=== PATIENT | female | born 1985 | race Hispanic/Latino ===

== ENCOUNTER 2018-11-30 05:43 | Inpatient (IN) ==
[2018-11-30] MEDS ORDERED: NS 1,000 ML IV ONE (06:03)
[2018-11-30] MEDS ORDERED: TORADOL IV ONE (06:03)
--- NOTE | 2018-11-30 06:10 | PROVIDER DOCUMENTATION ---
HPI-Abdominal Pain/GI Problem - General Chief Complaint: Flank Pain Stated Complaint: KIDNEY Time Seen by Provider: 11/30/18 05:48 Source: patient Allergies/Adverse Reactions: Patient Allergies Allergy/AdvReac Type Severity Reaction Status Date / Time No Known Allergies Allergy Verified 11/30/18 06:09 Home Medications: Home Medication List Medication Instructions Recorded Confirmed Last Taken Type Metformin [Glucophage] 1,000 mg PO DAILY 10/11/18 11/30/18 Unknown History - History of Present Illness-ABD Nature of Presenting Problems: 33 y/o HF c/o lt sided flank pain with fever for the past day adding that she has hx of kidney stones and uti's. Pt relates that her fever has been as high as 104 at home. Abdominal Pain Onset Location: reports: flank (LT flank) Pain Radiation: reports: LLQ Quality of Pain: reports: aching, sharp Severity in ED: reports: moderate Onset/Duration: reports: 24 hours ago Timing: reports: still present Activities at Onset: reports: light activity Exposure to sick contacts?: No Modifying Factors: improves with: movement, palpation Associated Symptoms: reports: denies symptoms Last BM: 24 hours ago Dark Stools Present?: reports: none noticed Rectal Bleeding: reports: none # of Diarrhea Episodes: 0 Rectal Pain: reports: none # of Vomiting Episodes: 0 Emesis Description: reports: none Bruising or Bleeding Gums?: No Similar Symptoms Previously?: No Recently seen or treated by another doctor?: No Review of Systems - Adult - REVIEW OF SYSTEMS - ADULT Constitutional: reports: no symptoms reported, see HPI Eyes: reports: no symptoms reported, see HPI Ears, Nose, Mouth & Throat: reports: no symptoms reported, see HPI Cardiovascular: reports: no symptoms reported, see HPI Respiratory: reports: no symptoms reported Gastrointestinal: reports: see HPI, abdominal pain Genitourinary: reports: see HPI, flank pain (lt sided) Musculoskeletal: reports: no symptoms reported, see HPI Integumentary: reports: no symptoms reported, see HPI Neurological: reports: no symptoms reported, see HPI Psychiatric: reports: no symptoms reported, see HPI Endocrine: reports: no symptoms reported, see HPI Hematologic/Lymphatic: reports: no symptoms reported, see HPI Allergic/Immunologic: reports: no symptoms reported, see HPI All Other Systems: Reviewed and Negative Past History - Adult - PAST MEDICAL HISTORY-ADULT Review of Records: reports: Nursing Assessment Review, Medications Reviewed, Social history reviewed & non-contributory. Major Childhood Illnesses: reports: denies history Cardiovascular: reports: denies history Respiratory: reports: denies history Gastrointestinal: reports: cancer (masses removed from stomach) Obstetrical/Gynecological: reports: denies history Genitourinary: reports: kidney stones (hx), chronic UTI's Musculoskeletal: reports: denies history Neurological: reports: denies history Endocrine/Immune: reports: denies history Other Conditions: reports: denies history - PRIOR SURGERIES/PROCEDURES Surgical/Procedure History: reports: appendectomy, cholecystectomy (lithotripsy ), other (masses removed from stomach) - IMMUNIZATION STATUS Childhood Immunizations: See Nurse Assessment Flu Vaccine: See Nurse Assessment - FAMILY HISTORY Family History: reviewed, not pertinent Physical Exam-General - PHYSICAL EXAM-ADULT Initial Vital Signs Reviewed: Yes - CONSTITUTIONAL General Appearance: appears well, alert, mild distress - EYES Eyes: PERRL/EOMI - HEAD, EARS, NOSE, MOUTH & THROAT HENMT: normocephalic/atraumatic, moist mucous membranes - NECK Neck: non-tender, full range of motion, supple, normal inspection - RESPIRATORY Respiratory: chest non-tender, lungs clear, normal breath sounds, no pleuratic chest pain, no respiratory distress, no accessory muscle use - CARDIOVASCULAR Cardiovascular: normal peripheral pulses, regular rate, rhythm, no edema, no gallop, no JVD - GASTROINTESTINAL (ABDOMEN) Abdominal Exam: normal bowel sounds, soft, no organomegaly, no pulsatile mass, tenderness (lt flank tenderness with palpation) - LYMPHATIC Lymphatic: no adenopathy - MUSCULOSKELETAL Back Exam: normal inspection, no vertebral tenderness, CVA tenderness (Lt sided) Extremity: normal range of motion, non-tender, normal gait, normal inspection, no pedal edema, no calf tenderness, normal capillary refill - SKIN Integumentary: normal color, normal turgor - NEUROLOGIC 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, grossly normal, no motor/sensory deficits - PSYCHIATRIC Psych/Mental Status: normal mood/affect, normal thought content, normal thought process, oriented x 3 Progress - PLAN OF CARE/RESULTS Progress/Plan/Lab Results: Vital Signs - 8 hr 11/30/18 05:47 Temperature 101.7 F H Pulse Rate 142 H Respiratory Rate 18 Blood Pressure 114/84 O2 Sat by Pulse Oximetry 96 Orders Category Date Time Status ED: Urine Bedside ORDERED Care 11/30/18 06:[address] ABDOMEN/PELVIS W/O CONTRAST [CT] Stat Exams 11/30/18 05:59 Ordered CBC WITH ELECTRONIC DIFF [HEME] Stat Lab 11/30/18 06:04 Uncollected CMP [COMPREHENSIVE METABOLIC PANEL] [CHEM] Stat Lab 11/30/18 06:04 Uncollected URINALYSIS W/POSS RFLX CULT [URINALYSIS] Stat Lab 11/30/18 05:59 Uncollected Ketorolac [Toradol] Med 11/30/18 06:03 Once 15 mg IV NOW ONE Ns 1000 ml IV Bolus X1 Med 11/30/18 06:03 Ordered 0.9% Sodium Chloride Inj [Ns] 1,000 ml IV 999 mls/hr Result Diagrams: 11/30/18 08:51 11/30/18 06:31 - REASSESSMENT Reassessment #1 Time Reassessed: 09:14 (assumed care @ shift change, pt seen, examined. Has had fever for 2 days, nausea. On exam, L CVA is tender. Discussed options with pt, feels she needs to stay) - CONSULTS/PCP/HOSPITALIST Notification #1 *Consult/PCP/Hospitalist*: Rosita for [facility] Time Discussed: 09:15 Consult Disposition: Will see in ED, Admit Departure - Departure Date of Disposition Decision: 11/30/18 Time of Disposition Decision: 09:16 DIAGNOSIS: Pyelonephritis Disposition: ADMITTED INPATIENT 09 Certified Medical Emergency: Emergent Condition: Stable Referrals and Follow-Ups: Ruth Lofton CRNP [Primary Care Provider] - - Critical Care Note This patient required my direct & personal management of CC.: No Attestation - Physician/ EDNA Attestation The physician spent face to face time with patient:: Yes Advanced Practice Provider documentation review:: Supervising physician onsite and consulted in the evaluation and care of this patient. The physician did have a face to face encounter with the patient.
[2018-11-30] MEDS ORDERED: TYLENOL PO ONE (06:12)
[2018-11-30 06:52] LABS: IMM GRAN# 0.03 X1000 (0.0-0.04); IMM GRAN% 0.2 % (0.0-0.5)
[2018-11-30 06:57] LABS: URINE SOURCE CLEAN CATCH
[2018-11-30 07:00] LABS: BILIRUBIN URINE NEGATIVE (NEGATIVE); BLOOD URINE MODERATE (NEGATIVE); COLOR YELLOW; GLUCOSE URINE NEGATIVE (NEGATIVE); KETONE URINE NEGATIVE (NEGATIVE); LEUKOCYTES URINE SMALL (NEGATIVE); NITRITE URINE NEGATIVE (NEGATIVE); PH URINE 6.5; PROTEIN URINE TRACE mg/dL (NEGATIVE); TURBIDITY URINE CLEAR (CLEAR); UROBILINOGEN URINE NORMAL (NORMAL)
[2018-11-30 07:01] LABS: UR EPITHELIAL CELLS <10 /HPF (<10); URINE BACTERIA 1+ /HPF; URINE RBC TNTC /HPF (<10)
[2018-11-30] MEDS ORDERED: ROCEPHIN 1 GM in NS 50 ML IV ONE (07:16)
[2018-11-30 07:22] LABS: AGAP 16; ALB/GLOB RATIO 1.1; ALBUMIN 4.4 g/dL (3.5-5.0); ALKALINE PHOSPHATASE 63 U/L (32-104); BUN 13 mg/dL (8-22); CALCIUM 9.9 mg/dL (8.8-10.2); CHLORIDE 98 mmol/L (98-107); COSMO 274; CREATININE 0.8 mg/dL (0.5-0.9); ESTIMATED GFR > 60; GLUCOSE 127 mg/dL (70-104); GOT 26 U/L (10-30); GPT 25 U/L (10-36); POTASSIUM 4.1 mmol/L (3.5-5.1); SODIUM 136 mmol/L (136-145); TCO2 22 mmol/L (25-35); TOTAL BILIRUBIN 0.58 mg/dL (0.20-1.00); TOTAL PROTEIN 8.3 g/dL (6.3-8.3)
--- NOTE | 2018-11-30 08:25 | Diag Imaging Result Doc PS360 ---
EXAM: CT ABDOMEN/PELVIS W/O CONTRAST 11/30/2018 HISTORY: lt flank pain TECHNIQUE: This exam was performed using automated exposure control, adjustment of mA or kV according to patient size, and/or use of iterative reconstruction technique. COMMENT: The current study is compared with 05/26/2018. There are minimal atelectatic appearing opacities in the lung bases which are slightly worse than on the previous study. The liver is hypodense. There are granulomata in the spleen. There has been cholecystectomy. There is some perinephric stranding and stranding in the anterior pararenal space on the left. This appearance was not present on the previous study. There is mild dilatation of the collecting system and ureter on the left. There is no evidence of ureterolithiasis. The possibility of a recently passed stone cannot be excluded. There has been previous appendectomy. There is no significant free fluid. The urinary bladder is unremarkable. There is no evidence of acute bony abnormality. IMPRESSION: Mild obstructive changes on the left without evidence of calculus. Electronically signed by Ky Barrios 11/30/2018 8:23 AM
--- NOTE | 2018-11-30 08:26 | Diag Imaging Result Doc PS360 ---
EXAM: CHEST-1 VIEW 11/30/2018 HISTORY: INITIATING SEPSIS PROTOCOL TECHNIQUE: AP portable at 0812 COMMENT: There is no evidence of acute cardiac or pulmonary disease. Compared to 07/14/2018 there has been no significant change. IMPRESSION: No evidence of acute disease. Electronically signed by Ky Barrios 11/30/2018 8:24 AM
[2018-11-30 08:34] LABS: INR 1.04; PROTIME 13.7 Seconds (11.0-16.0)
[2018-11-30 08:35] LABS: PTT 31.1 Seconds (22.3-41.8)
[2018-11-30 08:57] LABS: BASO# 0.01 X1000 (0.0-0.2); BASO% 0.1 % (0.0-0.8); HEMATOCRIT 38.7 % (37.0-47.0); LYMPH# 1.97 X1000 (1.2-3.4); LYMPH% 14.6 % (20.5-51.1); MCH 29.5 PG (27-31); MCHC 33.6 g/dL (33-37); MCV 87.8 FL (81-99); MONO# 1.02 X1000 (0.11-0.59); MONO% 7.6 % (1.7-9.3); MPV 10.9 FL (7.4-10.4); NEUT# 10.43 X1000 (1.4-6.5); NEUT% 77.5 % (42.2-75.2); PLT 210 X1000 (130-400); RBC 4.41 XMIL (4.2-5.4); WBC 13.46 X1000 (4.8-10.8)
--- NOTE | 2018-11-30 10:38 | HISTORY AND PHYSICAL ---
PRIMARY CARE PHYSICIAN: IGOR Guerra. CHIEF COMPLAINT: Left flank pain and fever for the past 2 days that progressively worsened. HISTORY OF PRESENTING ILLNESS: This is a 33-year-old female who presents to [facility] with complaints of left flank pain and fever for the past 2 days that had progressively worsened. States she has had a history of frequent UTIs and kidney stones requiring lithotripsy in the past. Her workup showed a temperature of 101.7 degrees on arrival with a pulse of 142. Her white blood cell count was 13.46. Urinalysis showed moderate blood, small leukocytes, 1+ bacteria. Abdomen and pelvic CT showed mild obstructive changes on the left without evidence of calculi. She has left CVA tenderness, so she will be admitted for further evaluation and treatment. PAST MEDICAL HISTORY: Frequent UTIs, kidney stones, and PCOS. PAST SURGICAL HISTORY: An appendectomy cholecystectomy, a mass removed from her stomach and lithotripsy. FAMILY HISTORY: Reviewed and noncontributory. SOCIAL HISTORY: She currently lives with family. Denies any tobacco use currently, but is a former smoker and denies any alcohol or illicit drug use. ALLERGIES: She has no known drug allergies. HOME MEDICATIONS: She takes Glucophage 1000 mg p.o. daily; it will be held. LABORATORY DATA: Showed a white blood cell count of 13.46, hemoglobin 13, hematocrit 38.7, platelets 210. PT and INR of 13.7 and 1.04. Sodium 136, potassium 4.1, chloride 98, CO2 22. BUN of 13, creatinine 0.8, glucose 127. Plasma lactate of 1.6. Cardiac enzymes were negative. Urinalysis with moderate blood, negative nitrites, small leukocytes, and 1+ bacteria. IMAGING STUDIES: Abdomen and pelvic CT showed mild obstructive changes on the left without evidence of calculus. Chest x-ray showed no evidence of acute disease. REVIEW OF SYSTEMS: She was positive for fever. Denied any chills, blurred vision, dizziness, chest pain, coughing, shortness of breath. Had some mild suprapubic and left lower quadrant abdominal pain with the left flank pain. No nausea, vomiting, diarrhea. No burning or hurting with urination. The patient states that she did just finish her menstrual cycle recently, but has not noted any marci blood in her urine. PHYSICAL EXAMINATION: VITAL SIGNS: On arrival she had a temperature of 101.7 degrees, pulse 142, respirations 18, blood pressure of 114/84, satting 96% on room air. Heart rate has come down to 112. GENERAL: This is a 33-year-old female sitting up in the bed and answers questions appropriately. HENT: Normocephalic, atraumatic. Normal ENT inspection. Oropharynx and nares are clear. EYES: Pupils are equal, round, and reactive to light and accommodation. Extraocular movements are intact. NECK: Normal inspection, normal range of motion. LUNGS: Clear to auscultation bilaterally with equal lung expansion and chest wall movement. HEART: With tachycardia, but no murmurs, rubs, or gallops. ABDOMEN: Soft. There was some mild tenderness to the suprapubic area to palpation. She also had left CVA tenderness. Bowel sounds are present x4 quadrants. MUSCULOSKELETAL: She had 5/5 strength x4 extremities. NEUROLOGICAL: The cranial nerves 2-12 appear grossly intact. ASSESSMENT: 1. Sepsis. 2. Pyelonephritis. 3. Fever. 4. Leukocytosis. PLAN: She will be admitted to the medical unit. Placed on a regular diet. Rocephin 1 gram IV q. 24 hours, normal saline at 125 mL an hour, Demerol 25 mg IV q. 4 hours p.r.n., Zofran 4 mg IV q. 4 hours p.r.n., Tylenol 650 mg p.o. q. 6 hours p.r.n. We will do serial lactate. We will do urine culture and recheck a CBC and BMP in the a.m. Further orders after seen by attending. Dictated by IGOR Rice for Adithya Dee MD cc: IGOR Guerra CRNP Omar J. Sosa-Chirinos, MD
[2018-11-30] MEDS: NS 1,000 ML IV SCH ×2 (11:15→21:02)
[2018-11-30] MEDS: DEMEROL IV PRN ×2 (11:29→16:35)
[2018-11-30] MEDS: ZOFRAN IV PRN ×2 (11:30→15:25)
[2018-11-30] MEDS: TYLENOL PO PRN ×2 (15:22→20:56)
--- NOTE | 2018-11-30 16:15 | HISTORY AND PHYSICAL ---
ADDENDUM REPORT The patient was seen and examined by me [id number]. All the laboratory, vital signs, and images were reviewed. She does have leukocytosis. She is tachycardic and we do have a source of infection, her urine, she meets criteria for sepsis. She does have a fever, also. She came in with 101.7. She has a history of frequent UTIs and kidney stones. As per the patient, she started having problems a couple days ago and it has been getting progressively worse. She does have CVA tenderness. CT scan of the abdomen and pelvis showed mild obstructive changes on the left without evidence of calculus. I asked the nurse to communicate with the urologist to check on this to see if they need to do any kind of procedure. In the meantime, she will continue with IV fluids. She has been placed on antibiotics. Initially, we started with ceftriaxone but I believe I will be a little bit more aggressive since she has a history of frequent UTIs. I will go ahead and put this patient on Zosyn, IV fluids, pain medication and nausea medication. Tomorrow morning, hopefully, I will order also a kidney ultrasound, but I want Urology Department to evaluate the images. I agree with the rest of the assessment and plan done by the FOOD SERVICE HOTEL [employer]NER. cc: Adithya Dee MD
[2018-11-30] MEDS: ZOSYN 3.375 GM in NS 50 ML IV SCH ×2 (16:37→23:10)
[2018-12-01] MEDS: ZOSYN 3.375 GM in NS 50 ML IV SCH ×4 (04:34→23:43)
[2018-12-01] MEDS: ZOFRAN IV PRN (04:35)
[2018-12-01] MEDS: DEMEROL IV PRN ×2 (04:35→09:42)
[2018-12-01] MEDS: NS 1,000 ML IV SCH ×3 (04:56→20:10)
[2018-12-01 05:28] LABS: BASO# 0.02 X1000 (0.0-0.2); BASO% 0.2 % (0.0-0.8); EOS# 0.03 X1000 (0.0-0.7); EOS% 0.3 % (0.0-10.0); HEMATOCRIT 36.8 % (37.0-47.0); IMM GRAN# 0.03 X1000 (0.0-0.04); IMM GRAN% 0.3 % (0.0-0.5); LYMPH# 1.65 X1000 (1.2-3.4); MCH 29.3 PG (27-31); MCHC 32.6 g/dL (33-37); MCV 89.8 FL (81-99); MONO# 1.16 X1000 (0.11-0.59); MPV 10.8 FL (7.4-10.4); NEUT# 6.81 X1000 (1.4-6.5); NEUT% 70.2 % (42.2-75.2); PLT 162 X1000 (130-400); RDW 13.3 % (11.5-14.5)
[2018-12-01 06:00] LABS: AGAP 12; BUN 6 mg/dL (8-22); CALCIUM 7.8 mg/dL (8.8-10.2); CHLORIDE 104 mmol/L (98-107); COSMO 273; CREATININE 0.7 mg/dL (0.5-0.9); ESTIMATED GFR > 60; GLUCOSE 125 mg/dL (70-104); POTASSIUM 3.6 mmol/L (3.5-5.1); SODIUM 137 mmol/L (136-145); TCO2 21 mmol/L (25-35)
[2018-12-01] MEDS ORDERED: ROCEPHIN 1 GM in NS 50 ML IV SCH (09:00)
--- NOTE | 2018-12-01 10:05 | PROGRESS NOTE ---
DATE: 12/01/2018 SUBJECTIVE: This patient is still complaining of left CVA pain and left flank pain. Her urine seems to be more clear today, compared with yesterday. She does have bacteremia. Blood culture showed gram-negative rods 1/2. Urine culture is still negative. OBJECTIVE: Vital Signs: Temperature 99.5 degrees, pulse 106, respiratory rate 20, blood pressure 104/64, and oxygen saturation 100% on room air. HEENT: Head normocephalic. No trauma. PERRLA. Neck: Supple. No JVD. Central trachea. Chest: Clear to auscultation. No wheezing. No rales. Abdomen: Soft. Tenderness to palpation at the level of the left flank. No signs of peritoneal irritation. CVA tenderness. Extremities: No edema. No clubbing. No cyanosis. Neurological: The patient is alert. She is oriented x3. No focal deficits. LABORATORY: WBC is 9.7, hemoglobin 12, hematocrit 36.8, and platelets 162,000. Sodium 137, potassium 3.6, chloride 104, bicarbonate 21, BUN 6, creatinine 0.7, glucose 125, and calcium 7.8. ASSESSMENT AND PLAN: 1. Sepsis due to urinary tract infection/left pyelonephritis. CT scan of the abdomen and pelvis showed mild obstructive changes on the left side without evidence of calculus, but I will get a renal ultrasound. I will ask Urology Department to evaluate this patient to rule out strictures. There is no clear evidence of ureterolithiasis. She probably passed a stone recently, but I am not sure. Continue with broad-spectrum antibiotics with Zosyn. I will continue with IV fluids as well. 2. Left pyelonephritis, as above. Continue with IV fluids and antibiotics. I will get a renal ultrasound and Urology Department evaluation. 3. History of kidney stones and frequent UTIs. Aware. 4. History of polycystic ovarian syndrome, aware. She is on metformin at home for that. 5. Gram-negative yinka bacteremia. Continue with Zosyn for now. She had an episode of fever yesterday in the afternoon of 103.1, but no more fever after that one. We will continue to monitor. I will wait for the final sensitivity. cc: Adithya Dee MD
[2018-12-01] MEDS: TYLENOL PO PRN (11:01)
--- NOTE | 2018-12-01 13:38 | Diag Imaging Result Doc PS360 ---
EXAM: US RENAL 2 (RETROPER) COMPLETE 12/01/2018 HISTORY: jerica/arf TECHNIQUE: Renal ultrasound COMMENT: The liver is hyperechoic. The urinary bladder is not distended. The kidneys are without evidence of hydronephrosis or mass. There is no evidence of stones. The kidneys are normal in echogenicity. The right kidney measures 11.9 x 5.2 x 4 cm the left is 11.1 x 4.7 x 4.7 cm. IMPRESSION: No evidence of obstructive uropathy. Hepatic steatosis. Electronically signed by Ky Barrios 12/01/2018 1:35 PM
[2018-12-01] MEDS ORDERED: LEVAQUIN 750 MG/D5W 750 MG/150 ML IVPB IV SCH (13:45)
--- NOTE | 2018-12-01 14:32 | CONSULTATION ---
DATE OF CONSULTATION: 12/01/2018 ATTENDING AND REFERRING PHYSICIAN: Hospitalist. HISTORY OF PRESENT ILLNESS: This 33-year-old female was admitted with fever and probable left pyelonephritis. The patient has a history of renal lithiasis having had 1 removed in early 2015. She states she has significant left flank pain. A CT scan of the abdomen and pelvis revealed mild left hydroureteronephrosis. There were no stones visualized. The patient has had 10 CT scans of the abdomen since 2016. Comparing the recent CT scan to May 2018, there is essentially no change. The patient has had no hematuria. She states she is feeling somewhat better. PAST MEDICAL HISTORY: Diabetes, renal lithiasis, and being treated for recurrent urinary infections. CURRENT MEDICATIONS: Documented on the chart. PAST SURGICAL HISTORY: Appendectomy, cholecystectomy, vaginal deliveries, and exploratory laparotomy. SOCIAL HISTORY: She denies tobacco use. She denies alcohol use. ALLERGIES: No known drug allergies. She denies any problems with heart disease, strokes, seizures, recent pulmonary or bowel problems. PHYSICAL EXAMINATION: General: A mildly obese, age apparent, normally developed female oriented in all ways and cooperative. HEENT: Normal for age. Lungs: Clear. Cardiovascular: Regular rate and rhythm. Abdomen: Protuberant. Soft. Mild left CVA tenderness. No hepatosplenomegaly or masses. Normal bowel sounds. Genitourinary: Deferred until surgery. Extremities: No clubbing, cyanosis, or edema. Neurologic: No focal deficits. LABORATORY EVALUATION: White count of 9.7, hemoglobin 12, hematocrit of 36.8, and platelets are 162,000. Serum electrolytes are normal. BUN 6, creatinine 0.7. A blood culture 1 of 2 is growing a gram-negative yinka. Her urine culture is growing a gram-negative yinka. IMPRESSION: 1. Left pyelonephritis. 2. Question of dilated left collecting system. PLAN: 1. Cystoscopic exam with bilateral retrograde ureteral pyelograms. 2. Continue IV antibiotics. 3. This planned procedure, benefits versus risks, possible complications, including, but not limited to, bleeding, infection, not finding any abnormalities, finding abnormalities with need for further procedures was discussed. She seems to understand and desires to proceed. cc: Tex Chung MD
[2018-12-01] MEDS: MIRALAX PO SCH (16:21)
[2018-12-01] MEDS ORDERED: MORPHINE IV PRN (18:28)
[2018-12-01] MEDS: ULTRAM PO PRN (20:07)
[2018-12-02] MEDS: ZOSYN 3.375 GM in NS 50 ML IV SCH (05:05)
[2018-12-02] MEDS: NS 1,000 ML IV SCH ×3 (05:06→23:53)
[2018-12-02 05:52] LABS: BASO# 0.01 X1000 (0.0-0.2); BASO% 0.1 % (0.0-0.8); EOS# 0.09 X1000 (0.0-0.7); EOS% 1.3 % (0.0-10.0); HEMATOCRIT 34.1 % (37.0-47.0); HEMOGLOBIN 11.2 g/dL (12.0-16.0); LYMPH# 2.38 X1000 (1.2-3.4); LYMPH% 33.5 % (20.5-51.1); MCH 29.1 PG (27-31); MCHC 32.8 g/dL (33-37); MCV 88.6 FL (81-99); MONO% 14.1 % (1.7-9.3); MPV 11.2 FL (7.4-10.4); NEUT# 3.62 X1000 (1.4-6.5); PLT 183 X1000 (130-400); RBC 3.85 XMIL (4.2-5.4); RDW 13.1 % (11.5-14.5)
[2018-12-02 06:20] LABS: AGAP 12; BUN 7 mg/dL (8-22); CALCIUM 7.9 mg/dL (8.8-10.2); CHLORIDE 106 mmol/L (98-107); COSMO 277; CREATININE 0.7 mg/dL (0.5-0.9); ESTIMATED GFR > 60; GLUCOSE 130 mg/dL (70-104); POTASSIUM 3.9 mmol/L (3.5-5.1); SODIUM 139 mmol/L (136-145); TCO2 21 mmol/L (25-35)
[2018-12-02] MEDS: MIRALAX PO SCH (08:39)
[2018-12-02] MEDS ORDERED: LEVAQUIN 750 MG/D5W 750 MG/150 ML IVPB IV SCH (09:19)
[2018-12-02] MEDS: ULTRAM PO PRN ×2 (10:01→22:03)
--- NOTE | 2018-12-02 10:40 | PROGRESS NOTE ---
DATE: 12/02/2018 SUBJECTIVE: This patient feels better today. She is still complaining of some pain in the right flank. Her urine seems to be more clear. She is not complaining of fever or chills. Blood pressure seems to be stable. She will go for a procedure today with the urology department. Renal ultrasound showed no evidence of obstructive uropathy but showed hepatic steatosis. OBJECTIVE: Vital Signs: Temperature 98.2 degrees, pulse 94, respiratory rate 15, blood pressure 120/81, oxygen saturation 100% on room air. HEENT: Head normocephalic. No trauma. PERRLA. Neck: Supple. No JVD. No masses. Central trachea. Chest: Clear to auscultation. No wheezing. No rales. Abdomen: Soft. Tenderness to palpation at the level of the left flank. No signs of peritoneal irritation. Some CVA tenderness. Extremities: No edema, no clubbing, no cyanosis. Neurological Examination: The patient is alert. She is oriented x3. No focal deficits. Laboratory: WBCs 7.1, hemoglobin 11.2, hematocrit 34.1, platelets 183,000. Sodium 139, potassium 3.9, chloride 106, bicarbonate 21, BUN 7, creatinine 0.7, glucose 130, calcium 7.9. ASSESSMENT AND PLAN: 1. Sepsis due to urinary tract infection/left pyelonephritis. CT scan of the abdomen and pelvis showed mild obstructive changes on the left side without evidence of calculus. Urology department has evaluated this patient and they will go to the operating room to do a cystoscopic exam today. We will wait for recommendations. I will continue with antibiotics. She does have Escherichia coli infection, sensitive to levofloxacin, which I will continue. 2. Left pyelonephritis, as above. 3. Escherichia coli bacteremia. Continue with levofloxacin intravenously. She is feeling much better. No fever, no chills. I have requested a new blood culture. 4. History of kidney stones and frequent urinary tract infections. Aware. 5. History of polycystic ovarian syndrome. Aware. 6. Hepatic steatosis. cc: Adithya Dee MD
[2018-12-02] MEDS: TYLENOL PO PRN (11:03)
[2018-12-02] MEDS ORDERED: DIPRIVAN 1% ONE (12:09)
[2018-12-02] MEDS: ZOFRAN IV PRN (12:20)
[2018-12-02] MEDS ORDERED: XYLOCAINE-MPF 2% ONE (12:36)
[2018-12-02] MEDS ORDERED: GENTAMICIN ONE (13:24)
[2018-12-02] MEDS ORDERED: VERSED ONE (13:44)
[2018-12-02] MEDS ORDERED: ZOFRAN ONE (14:03)
[2018-12-02] MEDS ORDERED: DECADRON ONE (14:03)
[2018-12-02] MEDS ORDERED: TORADOL ONE (14:20)
--- NOTE | 2018-12-02 20:39 | OPERATIVE NOTE ---
PROCEDURE DATE: 12/02/2018 PREOPERATIVE DIAGNOSIS: Left pyelonephritis with mild dilation of the left renal collecting system with no evidence of stone. POSTOPERATIVE DIAGNOSIS: Left pyelonephritis with mild dilation of the left renal collecting system with no evidence of stone. PROCEDURE PERFORMED: 1. Cystoscopic exam. 2. Bilateral retrograde ureteral pyelogram. ANESTHESIA: General via laryngeal mask. FINDINGS: Cystoscopic exam: Urethra--greater than 21 Vietnamese without stricture. Bladder--normal ureteral orifices bilaterally. No papillary lesions, trabeculations or diverticula. Left retrograde ureteral pyelogram normal without filling defects. Contrast went up and came down on the drain film without any evidence of obstruction. Right retrograde ureteral pyelogram: Normal without filling defect. exam: Normal external female, normal mucosa, no adnexal masses, palpably normal bladder, cervix and uterus. INDICATION FOR PROCEDURE: This 33-year-old female was admitted with left pyelonephritis. Her blood culture grew E coli. Her urine culture grew E coli. Her CT scan revealed questionable dilation of the left renal collecting system. DESCRIPTION OF PROCEDURE: After informed consent was obtained from the patient and her receiving IV antibiotics, she was taken to the main OR cystoscopy room, placed in the supine position. General anesthesia via laryngeal mask was achieved. She was then placed in a low lithotomy position and prepped and draped in the usual sterile fashion for cystoscopic exam. A 21-Vietnamese cystoscope was passed through the patient's urethra and into the bladder with findings as noted above. An 8-Vietnamese cone-tipped catheter was passed through the cystoscope and engaged the left ureteral orifice. Contrast with gentamicin in the contrast was injected into the left ureter and up into the kidney. Again no filling defects or obstruction to flow or drain was visualized. The right side was accomplished similarly and was likewise normal. The bladder was drained. Cystoscope was removed. A drain film was obtained that revealed complete emptying of both collecting systems. The cystoscope was removed. exam performed. She tolerated the procedure well. Estimated blood loss was 0. She was taken to recovery room in good condition. cc: Tex Chung MD
[2018-12-03] MEDS: NS 1,000 ML IV SCH ×3 (04:58→23:14)
[2018-12-03 08:15] LABS: BASO# 0.01 X1000 (0.0-0.2); BASO% 0.1 % (0.0-0.8); EOS# 0.03 X1000 (0.0-0.7); EOS% 0.4 % (0.0-10.0); HEMATOCRIT 36.9 % (37.0-47.0); HEMOGLOBIN 12.2 g/dL (12.0-16.0); LYMPH# 2.89 X1000 (1.2-3.4); LYMPH% 36.5 % (20.5-51.1); MCH 29.1 PG (27-31); MCHC 33.1 g/dL (33-37); MCV 88.1 FL (81-99); MONO# 0.65 X1000 (0.11-0.59); MONO% 8.2 % (1.7-9.3); MPV 10.6 FL (7.4-10.4); NEUT# 4.33 X1000 (1.4-6.5); NEUT% 54.8 % (42.2-75.2); PLT 266 X1000 (130-400); RBC 4.19 XMIL (4.2-5.4); WBC 7.91 X1000 (4.8-10.8)
--- NOTE | 2018-12-03 08:25 | Diag Imaging Result Doc PS360 ---
EXAM: RETROGRADES 2 OR 3 FILMS HISTORY: ABD PAIN TECHNIQUE: 21 films submitted COMPARISON: None. FINDINGS: The gallbladder has been removed. Early films show retrograde filling of the left ureter. No obstruction to retrograde flow. No stone or stricture. Normal distention to the renal pelvis and calyces. Later films have retrograde filling of the right ureter. No obstruction to retrograde flow. No filling defect or stricture. Normal distention of the renal pelvis. Normal drainage. IMPRESSION: No abnormality identified. Electronically signed by Fadi Dias 12/03/2018 8:24 AM
[2018-12-03 08:28] LABS: AGAP 14; BUN 12 mg/dL (8-22); CALCIUM 8.7 mg/dL (8.8-10.2); CHLORIDE 105 mmol/L (98-107); COSMO 276; CREATININE 0.7 mg/dL (0.5-0.9); ESTIMATED GFR > 60; GLUCOSE 115 mg/dL (70-104); POTASSIUM 3.9 mmol/L (3.5-5.1); SODIUM 138 mmol/L (136-145); TCO2 19 mmol/L (25-35)
[2018-12-03] MEDS: MIRALAX PO SCH (09:33)
[2018-12-03] MEDS: ULTRAM PO PRN ×2 (12:00→19:35)
[2018-12-03] MEDS ORDERED: ROCEPHIN ONE (12:07)
[2018-12-03] MEDS: ROCEPHIN 1 GM in NS 50 ML IV SCH (12:11)
--- NOTE | 2018-12-03 17:20 | PROGRESS NOTE ---
DATE: 12/03/2018 INTERVAL HISTORY: The patient still has some mild lower abdominal pain or discomfort, but otherwise doing well. Afebrile. Urine output is good. No other new complaints. No acute events overnight. REVIEW OF SYSTEMS: A 12-point review of systems is negative except as per interval history. LABS: WBC 7.9, hemoglobin 12.2, hematocrit 36.9, platelets 266,000. Basic metabolic panel remarkable only for bicarbonate 19, glucose 115. IMAGING: Retrograde pyelogram with no evidence of obstruction next. VITAL SIGNS: T-max 98.2 degrees, pulse 68, respirations 18, blood pressure 122/75, and O2 saturation 100% on room air. PHYSICAL EXAMINATION: General: No acute distress. Vital Signs: As above. HEENT: Normocephalic, atraumatic. Moist mucous membranes. No cervical adenopathy. Cardiovascular: Regular rate and rhythm. No murmurs noted. Pulmonary: Clear to auscultation bilaterally. Abdomen: Soft. Mild left lower abdominal to suprapubic tenderness without rebound or guarding. Bowel sounds positive. No CVA tenderness today. Extremities: Peripheral pulses intact. No clubbing, cyanosis, or edema. Neurologic: Cranial nerves grossly intact. No focal deficits identified. Psychiatric: Normal mood and affect. Awake, alert, oriented x3. Skin: No new rashes or lesions identified. ASSESSMENT AND PLAN: 1. Urinary tract infection, left pyelonephritis, sepsis. The patient with evidence of sepsis, abdominal pain, and CT scan showing likely pyelonephritis with possible obstruction on the left without clear evidence of a stone. From an infection standpoint, patient much improved. Both blood and urine cultures growing Escherichia coli, which is resistant only to ampicillin and Augmentin. Transition from Levaquin to Rocephin. Plan on discharge on Omnicef when we get to that point. Urology performed a retrograde pyelogram yesterday with no evidence of obstruction. Patient may have had recently passed stone, which would explain most of her findings. 2. Escherichia coli bacteremia, likely secondary to urinary tract infection/pyelonephritis as above. Continue Rocephin. Repeat blood cultures drawn this morning. If those remain negative, then can hopefully be discharged home tomorrow on oral antibiotics. 3. Hepatic steatosis. Incidental finding. Aware.
[2018-12-04] MEDS: NS 1,000 ML IV SCH (06:45)
[2018-12-04 07:20] VITALS: BP 141/80
[2018-12-04] MEDS: MIRALAX PO SCH (08:50)
[2018-12-04] MEDS: ULTRAM PO PRN (08:52)
[2018-12-04] MEDS: ROCEPHIN 1 GM in NS 50 ML IV SCH (11:03)
--- NOTE | 2018-12-04 14:25 | DISCHARGE SUMMARY ---
ADMISSION DATE: 11/30/2018 DISCHARGE DATE: 12/04/2018 PRIMARY CARE PHYSICIAN: IGOR Guerra. ADMISSION DIAGNOSES: 1. Sepsis. 2. Pyelonephritis. 3. Fever. 4. Leukocytosis. DISCHARGE DIAGNOSES: 1. Left pyelonephritis, urinary tract infection with Escherichia coli and bacteremia Escherichia coli. 2. Hepatic steatosis. SUMMARY OF FINDINGS: This is a 33-year-old female who presented to the ER with complaints of left flank pain and fever for 2 days prior to arriving that progressively worsened. Had a history of frequent UTIs and kidney stones requiring lithotripsy in the past. She had a fever of 101.7 degrees on arrival. Pulse was 142. White blood cell count was 13.46. Abdomen and pelvic CT showed mild obstructive changes on the left without evidence of calculi. She did have CVA tenderness. She was admitted. Her cultures grew out E. coli in both her urinalysis and blood. We consulted Urology. She had a cystoscopic exam, bilateral retrograde ureteral pyelogram and doing well from that and it is now felt that she could safely be discharged home today. DISCHARGE MEDICATIONS: Will include cefdinir 300 mg p.o. b.i.d., #18 with no refills, metformin 1000 mg p.o. daily. FOLLOWUP: She will need to follow up with her primary care physician in the next 1 to 2 weeks and call that office for an appointment. All discharge instructions were reviewed and she verbalized understanding. TIME SPENT: 35 minute discharge. Dictated by IGOR Rice for Carl Tabares MD cc: IGOR Rice CRNP Agree with the above. patient with pyelonephritis and e. coli bacteremia. repeat blood cultures no growth for a little over 24 hours. abdominal exam s/nt/nd, BS+. stable for discharge home on omnicef to finish treatment of her pyelo. MTDD
== END 2018-12-04 13:26 | disposition home or self-care (01) | DRG 872 ==
LOC: ED 05:43 → SUATTDRO 09:46 → EDIPHOLD 09:46 → 1N 11:04
PROVIDERS: ATTEND Internal Medicine